=== PATIENT | female | born 1955 | race Caucasian/White ===

== ENCOUNTER 2018-01-02 07:48 | Outpatient (CLI) | payer OTHER ==
[~2018-01-02 07:48] MED LIST: SYNTHROID50 MCG
== END 2018-01-02 08:01 | disposition home or self-care (01) ==
LOC: LAB 07:48
DX: Z80.0 Family history of malignant neoplasm of digestive organs (principal); Z80.3 Family history of malignant neoplasm of breast; B18.2 Chronic viral hepatitis C; D69.49 Other primary thrombocytopenia; D51.3 Other dietary vitamin B12 deficiency anemia; E03.8 Other specified hypothyroidism

== ENCOUNTER 2018-03-09 10:18 | Emergency (ER) | payer OTHER ==
[~2018-03-09] VITALS: Ht 157.5 cm; Wt 72.6 kg
== END 2018-03-09 16:01 | disposition home or self-care (01) ==
LOC: ER 10:18
DX: G57.82 Other specified mononeuropathies of left lower limb (principal); M79.661 Pain in right lower leg

== ENCOUNTER 2018-04-25 07:41 | Outpatient (CLI) | payer OTHER | END 2018-04-25 08:01 | disposition home or self-care (01) | LOC: LAB 07:41 | DX: Z80.0 Family history of malignant neoplasm of digestive organs (principal); Z80.3 Family history of malignant neoplasm of breast; B18.2 Chronic viral hepatitis C; D69.49 Other primary thrombocytopenia; D51.3 Other dietary vitamin B12 deficiency anemia; D51.1 Vitamin B12 deficiency anemia due to selective vitamin B12 malabsorption with proteinuria; D51.0 Vitamin B12 deficiency anemia due to intrinsic factor deficiency; E03.8 Other specified hypothyroidism; E06.3 Autoimmune thyroiditis ==

== ENCOUNTER 2018-08-27 07:48 | Outpatient (CLI) | payer OTHER | END 2018-08-27 07:51 | disposition home or self-care (01) | LOC: LAB 07:48 | DX: Z80.0 Family history of malignant neoplasm of digestive organs (principal); Z80.3 Family history of malignant neoplasm of breast; D89.2 Hypergammaglobulinemia, unspecified; B18.2 Chronic viral hepatitis C; D69.49 Other primary thrombocytopenia; D51.3 Other dietary vitamin B12 deficiency anemia; D51.1 Vitamin B12 deficiency anemia due to selective vitamin B12 malabsorption with proteinuria; D51.0 Vitamin B12 deficiency anemia due to intrinsic factor deficiency; E03.8 Other specified hypothyroidism; E06.3 Autoimmune thyroiditis; D68.8 Other specified coagulation defects ==

== ENCOUNTER → 2019-01-11 07:32 | Outpatient (CLI) | payer OTHER | END | disposition home or self-care (01) | LOC: LAB 07:32 | DX: E03.8 Other specified hypothyroidism (principal); E06.3 Autoimmune thyroiditis; D68.8 Other specified coagulation defects; Z80.0 Family history of malignant neoplasm of digestive organs; Z80.3 Family history of malignant neoplasm of breast; D89.2 Hypergammaglobulinemia, unspecified; B18.2 Chronic viral hepatitis C; D69.49 Other primary thrombocytopenia; D51.3 Other dietary vitamin B12 deficiency anemia; D51.1 Vitamin B12 deficiency anemia due to selective vitamin B12 malabsorption with proteinuria; D51.0 Vitamin B12 deficiency anemia due to intrinsic factor deficiency ==

== ENCOUNTER → 2019-03-18 07:37 | Outpatient (CLI) | payer OTHER | END | disposition home or self-care (01) | LOC: LAB 07:37 | DX: D89.2 Hypergammaglobulinemia, unspecified (principal); Z80.0 Family history of malignant neoplasm of digestive organs; Z80.3 Family history of malignant neoplasm of breast; B18.2 Chronic viral hepatitis C; D69.49 Other primary thrombocytopenia; D51.3 Other dietary vitamin B12 deficiency anemia; D51.0 Vitamin B12 deficiency anemia due to intrinsic factor deficiency; E03.8 Other specified hypothyroidism; E06.3 Autoimmune thyroiditis; D68.8 Other specified coagulation defects ==

== ENCOUNTER 2019-08-30 08:40 | Outpatient (CLI) | payer OTHER | END 2019-08-30 15:00 | disposition home or self-care (01) | LOC: LAB 08:40 | DX: D47.2 Monoclonal gammopathy (principal); Z80.0 Family history of malignant neoplasm of digestive organs; Z80.3 Family history of malignant neoplasm of breast; B18.2 Chronic viral hepatitis C; D69.49 Other primary thrombocytopenia; D51.3 Other dietary vitamin B12 deficiency anemia; D51.1 Vitamin B12 deficiency anemia due to selective vitamin B12 malabsorption with proteinuria; D51.0 Vitamin B12 deficiency anemia due to intrinsic factor deficiency; E03.8 Other specified hypothyroidism; E06.3 Autoimmune thyroiditis; D68.8 Other specified coagulation defects; D50.8 Other iron deficiency anemias; D51.8 Other vitamin B12 deficiency anemias; I10 Essential (primary) hypertension ==

== ENCOUNTER → 2020-02-29 07:12 | Outpatient (CLI) | payer OTHER | END | disposition home or self-care (01) | LOC: LAB 07:12 | PROVIDERS: ATTEND Internal Medicine Hematology & Oncology | DX: D50.8 Other iron deficiency anemias (principal); I10 Essential (primary) hypertension; D51.8 Other vitamin B12 deficiency anemias; D47.2 Monoclonal gammopathy; C90.00 Multiple myeloma not having achieved remission; Z80.0 Family history of malignant neoplasm of digestive organs; Z80.3 Family history of malignant neoplasm of breast; B18.2 Chronic viral hepatitis C; D69.49 Other primary thrombocytopenia; D51.3 Other dietary vitamin B12 deficiency anemia; D51.1 Vitamin B12 deficiency anemia due to selective vitamin B12 malabsorption with proteinuria; D51.0 Vitamin B12 deficiency anemia due to intrinsic factor deficiency; E03.8 Other specified hypothyroidism; E06.3 Autoimmune thyroiditis; D68.8 Other specified coagulation defects ==

== ENCOUNTER 2020-09-23 08:46 | Outpatient (CLI) | payer OTHER | END 2020-09-23 08:55 | disposition home or self-care (01) | LOC: LAB 08:46 | PROVIDERS: ATTEND Internal Medicine Hematology & Oncology | DX: D47.2 Monoclonal gammopathy (principal); Z80.0 Family history of malignant neoplasm of digestive organs; Z80.3 Family history of malignant neoplasm of breast; B18.2 Chronic viral hepatitis C; D69.49 Other primary thrombocytopenia; D51.3 Other dietary vitamin B12 deficiency anemia; D51.1 Vitamin B12 deficiency anemia due to selective vitamin B12 malabsorption with proteinuria; D51.0 Vitamin B12 deficiency anemia due to intrinsic factor deficiency; E03.8 Other specified hypothyroidism; E06.3 Autoimmune thyroiditis; D68.8 Other specified coagulation defects ==

== ENCOUNTER 2021-03-27 07:51 | Outpatient (CLI) | payer OTHER | END 2021-03-27 07:52 | disposition home or self-care (01) | LOC: LAB 07:51 | PROVIDERS: ATTEND Internal Medicine Hematology & Oncology | DX: D50.8 Other iron deficiency anemias (principal); R79.89 Other specified abnormal findings of blood chemistry; Z80.3 Family history of malignant neoplasm of breast; D47.2 Monoclonal gammopathy; B18.2 Chronic viral hepatitis C; D69.49 Other primary thrombocytopenia; D51.3 Other dietary vitamin B12 deficiency anemia; D51.1 Vitamin B12 deficiency anemia due to selective vitamin B12 malabsorption with proteinuria; D51.0 Vitamin B12 deficiency anemia due to intrinsic factor deficiency; E03.8 Other specified hypothyroidism; E06.3 Autoimmune thyroiditis; D68.8 Other specified coagulation defects ==

== ENCOUNTER 2021-07-02 09:56 | Outpatient (CLI) | payer OTHER | END 2021-07-02 09:58 | disposition home or self-care (01) | LOC: LAB 09:56 | PROVIDERS: ATTEND Internal Medicine Hematology & Oncology | DX: R79.89 Other specified abnormal findings of blood chemistry (principal); I10 Essential (primary) hypertension; R74.02 Elevation of levels of lactic acid dehydrogenase [LDH]; K76.89 Other specified diseases of liver; D68.8 Other specified coagulation defects; D69.1 Qualitative platelet defects; Z80.0 Family history of malignant neoplasm of digestive organs; Z80.3 Family history of malignant neoplasm of breast; D47.2 Monoclonal gammopathy; B18.2 Chronic viral hepatitis C; D69.49 Other primary thrombocytopenia; D51.3 Other dietary vitamin B12 deficiency anemia; D51.1 Vitamin B12 deficiency anemia due to selective vitamin B12 malabsorption with proteinuria; D51.0 Vitamin B12 deficiency anemia due to intrinsic factor deficiency; E03.8 Other specified hypothyroidism; E06.3 Autoimmune thyroiditis ==

== ENCOUNTER → 2022-09-09 08:45 | Outpatient (CLI) | payer OTHER | END | disposition home or self-care (01) | LOC: LAB 08:45 | PROVIDERS: ATTEND Internal Medicine Hematology & Oncology | DX: D47.2 Monoclonal gammopathy (principal); Z80.0 Family history of malignant neoplasm of digestive organs; Z80.3 Family history of malignant neoplasm of breast; B18.2 Chronic viral hepatitis C; D69.49 Other primary thrombocytopenia; D51.3 Other dietary vitamin B12 deficiency anemia; E03.8 Other specified hypothyroidism; D68.8 Other specified coagulation defects ==

== ENCOUNTER 2023-02-17 08:56 | Outpatient (CLI) | payer OTHER | END 2023-02-17 08:57 | disposition home or self-care (01) | LOC: LAB 08:56 | PROVIDERS: ATTEND Internal Medicine Hematology & Oncology | DX: D50.8 Other iron deficiency anemias (principal); R79.9 Abnormal finding of blood chemistry, unspecified; I10 Essential (primary) hypertension; R74.02 Elevation of levels of lactic acid dehydrogenase [LDH]; K76.89 Other specified diseases of liver; D68.8 Other specified coagulation defects; E56.1 Deficiency of vitamin K; D69.1 Qualitative platelet defects; Z80.0 Family history of malignant neoplasm of digestive organs; Z80.3 Family history of malignant neoplasm of breast; D47.2 Monoclonal gammopathy; B18.2 Chronic viral hepatitis C; D69.49 Other primary thrombocytopenia; D51.3 Other dietary vitamin B12 deficiency anemia; D51.0 Vitamin B12 deficiency anemia due to intrinsic factor deficiency; E03.8 Other specified hypothyroidism; E06.3 Autoimmune thyroiditis ==

== ENCOUNTER 2023-05-30 10:18 | Emergency (ER) | payer OTHER ==
[~2023-05-30] VITALS: Ht 160 cm; Wt 66.7 kg
[2023-05-30] MEDS ORDERED: SOLIFENACIN SUC10 MG PO (10:38)
[2023-05-30] MEDS ORDERED: MACROBID 100 M100 MG PO (13:53)
== END 2023-05-30 14:04 | disposition home or self-care (01) ==
LOC: ER 10:19
DX: R30.0 Dysuria (principal); R42 Dizziness and giddiness; Z88.2 Allergy status to sulfonamides

== ENCOUNTER → 2023-08-30 08:38 | Outpatient (CLI) | payer OTHER ==
[~2023-08-30 08:38] MED LIST changes: +MACROBID 100 M100 MG PO; +SOLIFENACIN SUC10 MG PO
[2023-08-30 10:32] LABS: HEMATOCRIT 37.3 % (36.0-45.00); HEMOGLOBIN 12.7 g/dL (12.0-15.00); MEAN CELL VOLUME 85.6 fL (80.00-100.00); MEAN CORPUSCULAR HEMOGLOBIN 29.1 pg (27.00-32.0); RED BLOOD COUNT 4.36 M/uL (4.00-6.00); RED CELL DISTRIBUTION WIDTH 16.4 % (11.5-14.5)
[2023-08-30 10:33] LABS: PLATELET COUNT 94 K/uL (150-450)
[2023-08-30 10:50] LABS: % SATURACION 25.7 % (15-50); ALBUMIN 4.5 gm/dL (3.4-5.0); BILIRUBIN TOTAL 0.67 mg/dL (0.3-1.2); CALCIUM 9.4 mg/dL (8.5-10.1); CREATININE SERUM 1.25 mg/dL (0.55-1.02); GFR 42.75; GLOBULINA 5.1 G/DL (2.4-3.5); POTASSIUM 4.21 mEq/L (3.5-5.1); TOTAL PROTEIN 9.6 gm/dL (6.4-8.2)
[2023-08-30 10:56] LABS: INR 1.11; PARTIAL THROMBOPLASTIN TIME 33.7 SECONDS (22.0-34.0); PROTHROMBIN TIME 11.6 SECONDS (9.0-11.5)
[2023-08-30 11:02] LABS: PT 50:50 10.6 SECONDS (9.7-11.4); PTT 50:50 30.6 SECONDS (22.4-33.0)
[2023-08-30 11:10] LABS: COL EPI 191 SECONDS (82-175)
[2023-08-30 11:46] LABS: VITAMIN D3 25 HYDROXY 62.01 ng/ml (30-120)
[2023-08-30 12:21] LABS: MANUAL PLATELET COUNT 228
[2023-08-30 12:23] LABS: PLATELET ESTIMATE NORMAL (NORMAL)
== END | disposition home or self-care (01) ==
LOC: LAB 08:38
PROVIDERS: ATTEND Internal Medicine Hematology & Oncology
DX: D50.8 Other iron deficiency anemias (principal); R79.9 Abnormal finding of blood chemistry, unspecified; I10 Essential (primary) hypertension; R74.02 Elevation of levels of lactic acid dehydrogenase [LDH]; K76.89 Other specified diseases of liver; E55.9 Vitamin D deficiency, unspecified; D68.8 Other specified coagulation defects; D69.1 Qualitative platelet defects

== ENCOUNTER 2023-09-17 08:51 | Emergency (ER) | payer OTHER ==
[~2023-09-17] VITALS: Ht 160 cm; Wt 66.2 kg
[2023-09-17 10:15] LABS: HEMATOCRIT 34.7 % (36.0-45.00); HEMOGLOBIN 11.7 g/dL (12.0-15.00); MEAN CELL VOLUME 86.6 fL (80.00-100.00); MEAN CORPUSCULAR HEMOGLOBIN 29.1 pg (27.00-32.0); MEAN CORPUSCULAR HGB CONC 33.6 g/dl (32.0-36.0); RED CELL DISTRIBUTION WIDTH 15.7 % (11.5-14.5)
[2023-09-17 10:23] LABS: URINE APPEARANCE Clear; URINE BILIRRUBIN Negative (NEGATIVE); URINE BLOOD Large; URINE COLOR Yellow; URINE GLUCOSE Negative (NEGATIVE); URINE LEUKOCYTE Trace; URINE NITRATE Negative; URINE PROTEIN Trace (NEGATIVE); URINE UROBILINOGEN 0.2 E.U./dl
[2023-09-17 10:27] LABS: PLATELET COUNT 103 K/uL (150-450)
[2023-09-17 10:27] LABS: URINE BACTERIA 8.8 uL (0.0-1933); URINE RBC 345.1 uL (0.0-20.8); URINE WBC 9.1 uL (0.0-23.2)
== END 2023-09-17 14:05 | disposition home or self-care (01) ==
LOC: ER 08:51
PROVIDERS: General Practice
DX: M46.1 Sacroiliitis, not elsewhere classified (principal); M51.36 Other intervertebral disc degeneration, lumbar region; R16.1 Splenomegaly, not elsewhere classified; Z88.0 Allergy status to penicillin; Z88.2 Allergy status to sulfonamides
CPT/HCPCS: 36415; 72100; 74176; 96372; 99284; J1885

== ENCOUNTER 2024-05-14 08:18 | Outpatient (CLI) | payer OTHER ==
[2024-05-14 09:44] LABS: HEMATOCRIT 35.4 % (36.0-45.00); HEMOGLOBIN 11.9 g/dL (12.0-15.00); MEAN CORPUSCULAR HEMOGLOBIN 28.7 pg (27.00-32.0); MEAN CORPUSCULAR HGB CONC 33.7 g/dl (32.0-36.0); RED BLOOD COUNT 4.16 M/uL (4.00-6.00); RED CELL DISTRIBUTION WIDTH 16.8 % (11.5-14.5)
[2024-05-14 09:56] LABS: PLATELET COUNT 71 K/uL (150-450)
[2024-05-14 10:42] LABS: % SATURACION 34.3 % (15-50); ALBUMIN 4.4 gm/dL (3.4-5.0); BILIRUBIN TOTAL 0.7 mg/dL (0.3-1.2); CALCIUM 9.2 mg/dL (8.5-10.1); CREATININE SERUM 1.32 mg/dL (0.55-1.02); FERRITIN 25.3 NG/ML (8-252); GFR 40.02; GLOBULINA 5.2 G/DL (2.4-3.5); POTASSIUM 4.26 mEq/L (3.5-5.1); TOTAL PROTEIN 9.6 gm/dL (6.4-8.2); TSH 3.27 uIU/mL (0.358-3.74)
[2024-05-14 11:06] LABS: MANUAL PLATELET COUNT 158
[2024-05-14 11:08] LABS: PLATELET ESTIMATE NORMAL (NORMAL)
[2024-05-14 12:31] LABS: FOLIC ACID > 20.00 ng/ml (4.78-20); VITAMIN D3 25 HYDROXY 57.72 ng/ml (30-120)
[2024-05-15 09:11] LABS: IMMUNOGLOBULIN A 136 mg/dL (87-352); IMMUNOGLOBULIN G 3434 mg/dL (586-1602); IMMUNOGLOBULIN M 406 mg/dL (26-217); TRANSFERIN 238 mg/dL (192-364)
[2024-05-15 15:07] LABS: kappa lambda r 1.24 (0.26-1.65); kappa light 58.4 mg/L (3.3-19.4); lambda light 47.2 mg/L (5.7-26.3)
[2024-05-16 15:08] LABS: a:g ratio 0.9 (0.7-1.7); alpha 1 g 0.2 g/dL (0.0-0.4); alpha 2 0.6 g/dL (0.4-1.0); beta g 0.8 g/dL (0.7-1.3); gamma g 3.4 g/dL (0.4-1.8); prot total 9.4 g/dL (6.0-8.5)
[2024-05-16 19:05] LABS: albu 23.6 % (.); alp 4.2 % (.); alph 2 22.1 % (.); beta 31.5 % (.); gam 18.6 % (.); m spi 0 % (Not Observed); prot 32.8 mg/dL (Not Estab.)
[2024-05-16 23:05] LABS: IMMUNOGLOBULIN D < 1.30 mg/dL (<14.11)
== END 2024-05-14 08:19 | disposition home or self-care (01) ==
LOC: LAB 08:18
PROVIDERS: ATTEND Internal Medicine Hematology & Oncology
DX: Z00.00 Encounter for general adult medical examination without abnormal findings (principal); Z80.3 Family history of malignant neoplasm of breast; D72.821 Monocytosis (symptomatic); D47.2 Monoclonal gammopathy; B18.2 Chronic viral hepatitis C; D69.49 Other primary thrombocytopenia; D51.3 Other dietary vitamin B12 deficiency anemia; D51.1 Vitamin B12 deficiency anemia due to selective vitamin B12 malabsorption with proteinuria; D51.0 Vitamin B12 deficiency anemia due to intrinsic factor deficiency; E03.8 Other specified hypothyroidism; E06.3 Autoimmune thyroiditis; D68.8 Other specified coagulation defects; D50.8 Other iron deficiency anemias; I10 Essential (primary) hypertension; R74.02 Elevation of levels of lactic acid dehydrogenase [LDH]; R79.9 Abnormal finding of blood chemistry, unspecified; C90.00 Multiple myeloma not having achieved remission; E55.9 Vitamin D deficiency, unspecified

== ENCOUNTER 2024-06-30 08:29 | Emergency (ER) | payer OTHER ==
[~2024-06-30] VITALS: Ht 160 cm; Wt 66.2 kg
[2024-06-30] MEDS ORDERED: [UNRECOGNIZED DRUG - OTHER] (08:53)
[2024-06-30 10:15] LABS: HEMATOCRIT 35.8 % (36.0-45.00); HEMOGLOBIN 11.8 g/dL (12.0-15.00); MEAN CELL VOLUME 87.9 fL (80.00-100.00); RED BLOOD COUNT 4.07 M/uL (4.00-6.00); RED CELL DISTRIBUTION WIDTH 17.8 % (11.5-14.5)
[2024-06-30 10:18] LABS: CALCIUM 9.3 mg/dL (8.5-10.1); CREATININE SERUM 1.46 mg/dL (0.55-1.02); GFR 35.63; POTASSIUM 4.38 mEq/L (3.5-5.1)
[2024-06-30 10:37] LABS: PLATELET COUNT 74 K/uL (150-450)
== END 2024-06-30 10:48 | disposition home or self-care (01) ==
LOC: ER 08:31
PROVIDERS: General Practice
DX: R21 Rash and other nonspecific skin eruption (principal); Z88.0 Allergy status to penicillin; Z88.2 Allergy status to sulfonamides

== ENCOUNTER 2024-07-18 07:58 | Outpatient (CLI) | payer OTHER ==
[~2024-07-18 07:58] MED LIST changes: +[UNRECOGNIZED DRUG - OTHER]
[2024-07-18 08:45] LABS: MEAN CELL VOLUME 89.2 fL (80.00-100.00); MEAN CORPUSCULAR HEMOGLOBIN 29.7 pg (27.00-32.0); MEAN CORPUSCULAR HGB CONC 33.3 g/dl (32.0-36.0); RED CELL DISTRIBUTION WIDTH 19.3 % (11.5-14.5)
[2024-07-18 09:05] LABS: INR 1.19; PARTIAL THROMBOPLASTIN TIME 31.6 SECONDS (22.0-34.0); PROTHROMBIN TIME 12.8 SECONDS (9.0-11.5)
[2024-07-18 09:07] LABS: ALBUMIN 4.5 gm/dL (3.4-5.0); BILIRUBIN TOTAL 0.72 mg/dL (0.3-1.2); BILIRUBIN,CONJUGATED 0.21 mg/dL (0.0-0.2); BILIRUBIN,UNCONJUGATED 0.51 mg/dL (0.0-0.6); CALCIUM 9.8 mg/dL (8.5-10.1); CREATININE SERUM 1.56 mg/dL (0.55-1.02); POTASSIUM 4.36 mEq/L (3.5-5.1); TOTAL PROTEIN 9.5 gm/dL (6.4-8.2)
[2024-07-18 10:42] LABS: PLATELET COUNT 50 K/uL (150-450)
[2024-07-18 10:45] LABS: MANUAL PLATELET COUNT 174
[2024-07-18 10:47] LABS: PLATELET ESTIMATE NORMAL (NORMAL)
== END 2024-07-18 07:59 | disposition home or self-care (01) ==
LOC: LAB 07:58
PROVIDERS: ATTEND Internal Medicine Hematology & Oncology
DX: C93.10 Chronic myelomonocytic leukemia not having achieved remission (principal); Z80.3 Family history of malignant neoplasm of breast; Z80.0 Family history of malignant neoplasm of digestive organs; D47.2 Monoclonal gammopathy; B18.2 Chronic viral hepatitis C; D69.49 Other primary thrombocytopenia; D51.3 Other dietary vitamin B12 deficiency anemia; D51.1 Vitamin B12 deficiency anemia due to selective vitamin B12 malabsorption with proteinuria; D51.0 Vitamin B12 deficiency anemia due to intrinsic factor deficiency; E03.8 Other specified hypothyroidism; E06.3 Autoimmune thyroiditis; D68.8 Other specified coagulation defects; I10 Essential (primary) hypertension; R74.02 Elevation of levels of lactic acid dehydrogenase [LDH]; K76.89 Other specified diseases of liver

== ENCOUNTER 2024-07-22 08:21 | Outpatient (CLI) | payer OTHER | END 2024-07-22 08:28 | disposition home or self-care (01) | LOC: TOM 08:21 | PROVIDERS: ATTEND Internal Medicine Gastroenterology | DX: R19.5 Other fecal abnormalities (principal) ==